=== PATIENT | female | born 1965 | race Hispanic/Latino ===

== ENCOUNTER 2016-09-16 08:02 | Day surgery (SDC) | payer OTHER ==
[2016-09-16] VITALS (9 sets, daily range): BP systolic 141–157; BP diastolic 84–96; PULSE 77–91; RESP 10–20; O2SAT 93–100
[~2016-09-16] VITALS: Ht 149.9 cm; Wt 86.6 kg
--- NOTE | 2016-09-16 07:39 | PCM.HPANE ---
Patient Data Surgeon Admitting Provider: Attending Provider:Doe Rivera MD Primary Care Physician:Elkin Fink MD Other Provider: Reason for Visit Right Knee Complex Lateral Meniscus Tear Ht/WT & BMI Height (Feet): 4 Height (Inches): 11 Weight (Kilograms): 85.73 Body Mass Index 38.00 Allergies Coded Allergies: No Known Allergies (Verified , 09/16/16) Past Anesthesia History Anesthesia History: Denies:: Abnormal Airway, Anesthesia Reactions, Difficult Intubation, Fam Anesthesia Reaction, Malignant Hyperthermia Diabetes History Hx Diabetes?: No MRSA MRSA: No Medications Hypertension Medication: Yes Home Meds Incl Beta Rosanna: No Reported Medications Lisinopril 10 Mg Tablet5 Mg PO DAILY 30 Days Ref 0 09/11/16 Gabapentin 100 Mg [id number] Mg PO DAILY 30 Days Ref 0 09/11/16 Discontinued Reported Medications oxyCODONE-Acetaminophen 5-325 mg 1 Each Tablet1 Tab PO Q6H PRN For Pain Ref 0 01/08/16 Lisinopril 5 Mg Tablet5 Mg PO DAILY #30 TABLET Ref 0 01/08/16 History History of ENT Problems?: No HEENT History: Denies:: Abnormal Airway Cataracts Difficult Intubation Dysphagia Glaucoma Hearing Problem Sinus Problem TMJ Hx of Heart Problems?: Yes Cardiovascular History: Positive for:: Hypertension Denies:: AICD Abdominal Aortic Aneurism Atrial Fibrillation Cardiac Surgery Edema Heart Murmur Irregular Heartbeat Pacemaker Peripheral Vascular Rheumatic Fever Hx of Respiratory Problem?: No Respiratory History: Denies:: Asthma COPD Emphysema Oxygen Administration Pneumonia Tuberculosis Use of C-PAP Machine Use of Inhalers / NEBS Hx Neurologic Problems?: No Neurological History: Denies:: CVA Dizziness Headaches Multiple Sclerosis Parkinson's Disease Seizures Hx of GI Problems?: Yes Gastrointestinal History: Positive for:: Gall Bladder Disease (removed) Denies:: Cirrhosis Gastroesphageal Reflux Gastrointestinal Bleeding Heartburn Hepatitis Liver Disease Hx of Problems?: No Genitourinary History: Denies:: Kidney Stones Urinary Tract Infection Female Hx: Denies:: Currently (tubal ligation) Problems with Breasts? Skin History: Denies:: History Skin Disorders? Pressure Ulcers Hx Musculoskeletal Problems?: Yes Musculoskeletal History: Positive for:: Musculoskeletal Trauma (right knee current admission problem) Denies:: Back Injury Degenerative Joint Fibromyalgia Joint Replacement Osteoarthritis Rheumatoid Arthritis Hx of Psycho/Social Problems?: No Psycho Social History: Denies:: Anxiety Hx Depression Hx Surgeries?: Yes (C/S X3,ADRIAN, left foot surgery, tubal ) Hx Any Other Health Problems?: Yes Other History: Denies:: Cancer Endocrine Disease Hospitalization Thyroid Disease History Blood Transfusions: Positive for:: Accept Blood Products? Denies:: Blood Transfusions Hx Diabetes: No Hx Alcohol Use: NoHx Substance Use: No Smoking Status: Never Smoker Have You Smoked inLast 12 mo: No Stop/Bang S-Snoring: Do You Snore Loudly: No T-Tired: feel tired, fatigued: No O-Obsered: Observed not breath: No P-Blood Pressure: treated: Yes B- Body Mass Index > 35 kg/m2: Yes A- Age over 50: Yes N- Neck Large Circumference: No G- Gender Male: No JOSE CRUZ Total Score: 3 Risk Assessment Category Category 1A: Patient has history of documented sleep apnea, and HAS NOT received any narcotic, sedative or anesthesia administration during this stay. Category 1B: Patient has history of documented sleep apnea, and HAS received any narcotic , sedative or anesthesia administration during this stay Category 2: Patient has SUSPECTED Obstructive Sleep Apnea, and HAS received any narcotic , sedative or anesthesia administration during this stay. Category 3: Patient has SUSPECTED Obstructive Sleep Apnea and HAS NOT received narcotic, sedative or anesthesia administration during this stay. Category 4: Outpatient in Procedural Areas with known sleep apnea or who screen positive for High Risk via the STOP/BANG questionnaire. Exam Exam General Appearance: Alert, Oriented X3, Cooperative HEENT/AIRWAY: MP 2, Neck Movement (THICK, FROM), Mouth Opening (WNL) Lungs: Clear to Auscultation Heart: Exam Unremarkable Plan Impression Patient chart reviewed, patient interviewed and anesthestic plan with risks, benefits, and alternatives discussed, and informed consent obtained. NPO Status: 01/08 at 2130 ASA Physical Status: ASA2 Mod Systemic Disease Anesthetic Plan: GA Bene/Risks/Altern/Consents: Yes HP Complete Prior to Induction: Yes Antelmo Molina MD Sep 16, 2016 07:39
[~2016-09-16 08:02] MED LIST: Acetaminophen IV 1,000 MG in IV Premix 1 EACH IV ONE; CeFAZolin Inj 2 GM in IV Premix 1 EACH IV ONE; GABA-500 PO; LISI10TA PO
[2016-09-16] MEDS ORDERED: fentaNYL-PF 50 mCg/mL 2 mL Inj ONE (08:03)
[2016-09-16] MEDS: Lactated Ringer's 1,000 ML IV SCH ×2 (08:13→09:57)
[2016-09-16] MEDS ORDERED: Lactated Ringer's 1,000 ML IV SCH (09:52)
[2016-09-16] MEDS ORDERED: Lactated Ringer's 500 ML IV PRN (09:52)
[2016-09-16] MEDS ORDERED: EPHEDrine Sulfate 50 mg/mL Inj IM PRN (09:55)
[2016-09-16] MEDS ORDERED: Ondansetron 2 mg/mL 2 mL Inj IVPUSH PRN (09:55)
[2016-09-16] MEDS ORDERED: Dexamethasone 4 mg/mL Inj IVPUSH PRN (09:55)
[2016-09-16] MEDS ORDERED: Phenylephrine 10,000 mCg/mL Inj IVPUSH PRN (09:55)
[2016-09-16] MEDS ORDERED: hydrALAZINE 20 mg/mL Inj IVPUSH PRN (09:55)
[2016-09-16] MEDS ORDERED: hydrOXYzine Inj 25 MG/1 mL SDV IM PRN (09:55)
[2016-09-16] MEDS ORDERED: Atropine 0.4 mg/mL Inj IVPUSH PRN (09:55)
[2016-09-16] MEDS ORDERED: HYDROmorphone 1 mg/mL Inj IVPUSH PRN (09:55)
[2016-09-16] MEDS ORDERED: Labetalol 5 mg/mL 4 mL Inj IV PRN (09:55)
[2016-09-16] MEDS ORDERED: EPHEDrine Sulfate 50 mg/mL Inj IVPUSH PRN (09:55)
[2016-09-16] MEDS ORDERED: Lidocaine 2%-Epi 1:100,000 20 mL Inj INFILTRATE ONE (10:26)
[2016-09-16] MEDS ORDERED: MethylprednisoLONE Depot 40 mg/mL Inj ARTICULAR ONE (10:26)
[2016-09-16] MEDS ORDERED: HYDROcodone-APAP 5-325 mg Tablet PO PRN (11:10)
[2016-09-16] MEDS: fentaNYL-PF 50 mCg/mL 2 mL Inj IVPUSH PRN ×2 (11:13→11:23)
--- NOTE | 2016-09-16 11:14 | PCM.ORTHOB ---
Immediate Operative Note Date of Service: Sep 16, 2016 Pre Operative Diagnosis Right knee lateral meniscal tear Post Operative Diagnosis Same Procedure Right knee arthroscopic partial lateral meniscectomy Surgeon Surgeon: Doe Rivera MD Assistants: None Findings Right knee lateral compartment complex tear of the body of the lateral meniscus extending into the anterior horn. Early degenerative changes on both sides of the joint with grade 1-2 chondromalacia in the weightbearing portion of lateral femoral condyle and tibial articular surface. The anterior cruciate ligament appeared partially and chronically torn affecting the anterior fibers. A significant amount of posterior fibers were still intact and attached to the femoral condylar origin. The medial compartment was better preserved. The medial meniscus appeared intact and was stable to probing. Minimal and diffuse grade 1 chondromalacia on both sides of the joint. No loose bodies were noted in the medial or lateral gutters. Diffuse grade 1 chondromalacia and small areas of grade 2 chondromalacia affecting the majority of the undersurface of the patella. Grafts, Implants: None Complications There were no periprocedural complications identified. Condition Stable Anesthetic Administered: GA Drains: None Catheters: None Output, Estimated Blood Loss: 1 Blood Admin during surgery: No Surgical Cast or Splint: None Additional Information Tourniquet time 30 minutes Surgical Specimen Removed: No Surgical Specimen sent to Path: No Post Operative Plan The patient will be discharged from daycare surgery when protocol is met. The patient will be allowed to weight-bear as tolerated through her right lower extremity beginning postop day #1. Patient should resume her preoperative knee strengthening exercises as soon as possible. The patient will be seen for routine wound check on her after postop day #5. The patient will have skin sutures removed on or after postoperative day #12. The patient should be able to resume light activities of daily living by that point. Doe Rivera MD Sep 16, 2016 11:14
--- NOTE | 2016-09-16 11:20 | PCM.ORTHOP ---
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 She reports the onset of right knee pain beginning approximately 4 months ago after initiating a vigorous, self-directed exercise program. Patient has been bothered by catching in the anterolateral aspect of her right knee with loaded squatting, lunging, turning and twisting activities. Preoperative exam reveals the right knee to have full and stable range of motion with tenderness along the lateral joint line and a positive Juan sign. Preoperative MRI of the patient's right knee confirms a complex tear of the body and anterior horn of the lateral meniscus. The patient's right knee symptoms have not responded to activity modification, an attempt at strengthening the knee and the use of anti- inflammatory agents. The patient presents for right knee arthroscopic partial lateral meniscectomy. Findings Right knee lateral compartment complex tear of the body of the lateral meniscus extending into the anterior horn. Early degenerative changes on both sides of the joint with grade 1-2 chondromalacia in the weightbearing portion of lateral femoral condyle and tibial articular surface. The anterior cruciate ligament appeared partially and chronically torn affecting the anterior fibers. A significant amount of posterior fibers were still intact and attached to the femoral condylar origin. The medial compartment was better preserved. The medial meniscus appeared intact and was stable to probing. Minimal and diffuse grade 1 chondromalacia on both sides of the joint. No loose bodies were noted in the medial or lateral gutters. Diffuse grade 1 chondromalacia and small areas of grade 2 chondromalacia affecting the majority of the undersurface of the patella. Details of Procedure Patient was brought to the OR and given a general anesthetic. The patient was placed in supine position and we placed a tourniquet high about the right thigh. Right lower extremity was prepped in usual sterile fashion and the tourniquet was inflated to 275 mmHg. We placed 2 infrapatellar arthroscopic portals, one medial and one lateral for the scope and instruments. We instilled lactated Ringer's with epinephrine and went directly into the lateral compartment. We confirmed the presence of a complex tear of the lateral meniscus extending from the body into the anterior horn. There were also early degenerative changes on both sides of the joint. We used arthroscopic basket biting instruments and an arthroscopic shaver to debride the meniscal tear back to a stable base. We explored the rest of the knee. We found the anterior cruciate ligament to be partially torn with the posterior fibers still intact and stable. The tear had a chronic appearance. The medial compartment was better preserved with minimal early degenerative changes. The medial meniscus was intact and stable to probing. The medial and lateral gutters were examined and found to be free of loose bodies. Patellofemoral compartment was reviewed and found to have mild early degenerative changes affecting the patellar undersurface. We thoroughly irrigated the knee and removed the scope and instruments. We instilled 30 mL of 2% lidocaine with epinephrine 1 mg of Depo- Medrol. The arthroscopic portals were closed with interrupted 4-0 nylon sutures. Wounds dressed with Xeroform and dry gauze dressings. Tourniquet was deflated and the patient was taken back to PACU in stable and satisfactory condition. There were no complications. Patient tolerated procedure well. Grafts, Implants: None Complications There were no periprocedural complications identified. Condition Stable Anesthetic Administered: GA Drains: None Catheters: None Output, Estimated Blood Loss: 1 Blood Admin during surgery: No Surgical Cast or Splint: None Addtional Information Tourniquet time 30 minutes Surgical Specimen Removed: No Specimen sent to Pathology: No Post Operative Plan The patient will be discharged from daycare surgery when protocol is met. The patient will be allowed to weight-bear as tolerated through her right lower extremity beginning postop day #1. Patient should resume her preoperative knee strengthening exercises as soon as possible. The patient will be seen for routine wound check on her after postop day #5. The patient will have skin sutures removed on or after postoperative day #12. The patient should be able to resume light activities of daily living by that point. copies to: Doe Rivera MD; Vickey Fink MD, Michael G.E MD Sep 16, 2016 11:20
--- NOTE | 2016-09-16 11:21 | PCM.ANEP1 ---
Post Anesthesia Phase 1 PACU Phase 1 Assessment Date of Service: Sep 16, 2016 Vital Signs Vital Signs Date Time Temp Pulse Resp B/P Pulse Ox O2 Delivery O2 Flow Rate FiO2 09/16/16 11:10 87 12 146/96 96 Room Air 09/16/16 11:05 89 11 141/93 99 Room Air 09/16/16 11:03 36.6 87 10 147/84 98 Room Air 09/16/16 08:20 36.6 78 16 144/93 96 Room Air Anesthetic Administered: GA Level of Alertness: Awake, talking VALENCIA's with Equal Strength: Yes Pain: Yes Pain Scale Score: 10 Nausea or Vomiting: No Oxygen Delivery: Room Air Lungs: Normal Air Movement Antelmo Molina MD Sep 16, 2016 11:21
--- NOTE | 2016-09-16 12:17 | PCM.ANEP2 ---
Post Anesthesia Evaluation ASA/CMS Post Anesthesia VS in Patient's Normal Range?: Yes Resp Stable; Airway Patent?: Yes CV Function & Hydration Stable: Yes Mental Status Recovered?: Yes Pain control Satisfactory?: Yes N/V Control Satisfactory?: Yes Antelmo Molina MD Sep 16, 2016 12:17
== END 2016-09-16 23:59 | disposition home or self-care (01) ==
LOC: SAS 08:02
PROVIDERS: ATTEND Orthopaedic Surgery
DX: M23.361 Other meniscus derangements, other lateral meniscus, right knee (principal); M94.261 Chondromalacia, right knee
CPT/HCPCS: 29881; J0131; J0690; J1030; J2250; J3010; J7120

== ENCOUNTER 2017-04-23 09:27 | Emergency (ER) | payer OTHER ==
[~2017-04-23] VITALS: Ht 149.9 cm; Wt 84.1 kg
[~2017-04-23 09:27] MED LIST changes: -Acetaminophen IV 1,000 MG in IV Premix 1 EACH IV ONE; -CeFAZolin Inj 2 GM in IV Premix 1 EACH IV ONE
[2017-04-23 09:33] VITALS: BP 145/94; PULSE 95; RESP 20; O2SAT 97
--- NOTE | 2017-04-23 10:28 | ED.REPORT ---
HPI-General Illness Date of Service Apr 23, 2017 ED Provider: Enrique Robles MD History of Present Illness: CC: HTN Pt is a 52 year old female with a history of hypertension who presents to the ED complaining of headache onset 0300. She describes her headache as diffuse and as "if her head is going to explode". Pt reports she took her blood pressure , and it was 160/110. She has lisinopril medication for her blood pressure, and has stopped taking it regularly, although she states she took one at 0430 today. She rates her pain now at 8/10, and was 10/10 at its worst. Additional symptoms include general weakness, nausea, chronic low back pain, and dry mouth. She denies fever, chest pain, vomiting, numbness/tingling, or any recent infection. She has had similar symptoms in the past once or twice. Nursing Notes Stated Complaint: HIGH BLOOD PRESSURE Chief Complaint: General Complaint Nursing Notes Reviewed: Yes (Oja.la, Mobile Card not reconciled) Allergies: Coded Allergies: No Known Allergies (Verified , 04/23/17) Scheduled Lisinopril (Lisinopril) 10 Mg Tablet 5 MG PO DAILY Scheduled PRN Cyclobenzaprine (Cyclobenzaprine) 10 Mg Tablet 10 MG PO TID PRN PRN Spasm In Mongolian please General Time Seen by MD: 10:03 Chief Complaint Headache Hx Obtained From: Patient, [employer] Visual Designer Arrived By: Walk-in Sudden in Onset?: Yes Onset Occurred: 1 - 4 hours ago Symptom Duration: Constant Quality: Painful Severity: Current: Pain level 8 out of 10 Severity: Maximum: Pain level 10 out of 10 Recent Healthcare: Recent doctor visit Similar Sx Previous: No Past Medical History Past Medical History Hypertension Past Surgical History Cholecystectomy Right knee 3 Tubal ligation left foot surgery Smoking History Never Smoker Social History Drug Use: Denies drug use Other Social History: Good social support Ambulatory Status Independent Review of Systems Hypertension Dry mouth Full Review of Systems Constitutional: Reports: Weakness - generalized, Denies: Fever Cardiovascular: Denies: Chest pain GI: Reports: Nausea, Denies: Vomiting Musculoskeletal: Reports: Back pain (chronic low back) Neurologic: Reports: Headache, Denies: Numbness Complete sys rev & neg: except as marked. Physical Exam Vital Signs Vital Signs Date Time Temp Pulse Resp B/P Pulse Ox O2 Delivery O2 Flow Rate FiO2 04/23/17 14:52 86 20 114/69 97 Room Air 04/23/17 14:19 84 23 121/81 95 Room Air 04/23/17 12:55 89 21 122/77 95 Room Air 04/23/17 11:15 91 20 144/95 98 Room Air 04/23/17 09:33 37.1 95 20 145/94 97 Room Air Initial VS: Reviewed, Vital signs normal (mild HTN) Head / Eyes: Atraumatic, Normocephalic Neck: Supple, Full range of motion Extremities: Vascular intact, Neuro intact, No swelling, No tenderness Skin: Warm, Dry, No cyanosis Neurologic: Alert, Oriented, Nonfocal Psychiatric: Mood/affect normal, Behavior normal, Normal thought content General/Constitutional: Awake, Alert Respiratory / Chest: Atraumatic, Breath sounds NL, Breath sounds = bilat, No respiratory distress Cardiovascular: Heart rate NL, Regular rhythm, Heart sounds NL Interpretation & Diagnostics Lab Results Interpretation Result Diagram: 04/23/17 1056 04/23/17 1056 Test 04/23/17 10:56 White Blood Count 9.1th/mm3 (3.8-10.1) Red Blood Count 4.82mil/mm3 (3.90-5.20) Hemoglobin 15.0g/dL (12.0-15.6) Hematocrit 43.6% (35.0-46.0) Mean Corpuscular Volume 90.5fL (81-100) Mean Corpuscular Hemoglobin 31.1pg (27.0-35.0) Mean Corpuscular Hemoglobin Concent 34.4% (32.0-37.0) Red Cell Distribution Width 12.7% (12.3-15.4) Platelet Count 164bil/L (150-400) Neutrophils (%) (Auto) 87.3% (40-74) Lymphocytes (%) (Auto) 8.0% (14-46) Monocytes (%) (Auto) 3.6% (4-12) Eosinophils (%) (Auto) 0.8% (0-5) Basophils (%) (Auto) 0.1% (0-3) Sodium Level 140mEq/L (134-144) Potassium Level 4.3mEq/L (3.5-5.2) Chloride Level 102mEq/L (97-108) Carbon Dioxide Level 22mmol/L (18-29) Blood Urea Nitrogen 12mg/dL (6-24) Creatinine 0.44mg/dL (0.57-1.00) Estimat Glomerular Filtration Rate 215mL/min (>59) Glucose Level 127mg/dL (60-99) Calcium Level 9.1mg/dL (8.5-10.1) Total Bilirubin 0.8mg/dL (0.0-1.2) Aspartate Amino Transf (AST/SGOT) 190U/L (0-50) Alanine Aminotransferase (ALT/SGPT) 135U/L (0-32) Alkaline Phosphatase 119U/L (25-150) Total Protein 7.4g/dL (6.4-8.4) Albumin 4.1g/dL (3.4-5.0) ECG Interpretation ECG Interpretation: Sinus rhythm, rate 95 Time: 10:01 Interpreted by: ED physician CT Head Interpretation IMPRESSION: No CT evidence of acute intracranial pathology. Dictated by: Param Rangel M.D. on 04/23/2017 at 13:34 Approved by: Param Rangel M.D. on 04/23/2017 at 13:36 Study: Head CT no contrast Interpretation / Wet Read by: Interpret - Radiologist Re-Eval/Medical Decision Med Decision/Clinical Course This is a pleasant 52-year-old female woke with a headache today. She describes as a pressure discomfort, she took her blood pressure at home and was in the 160s. She notes that she is postmenopausal and go but has not been taking this routinely. She has no focal deficits, no history of trauma, no meningismus, no rash or exanthem. Exam she's anxious. She has trace nausea no vomiting. She has a normal neurologic exam. She has no red flags to indicate subarachnoid, meningitis or need for LP. She received Phenergan, and symptoms markedly improved. She several rounds medicines, but after multiple doses of medicines she is still concerned that she still had some residual headache. Given the persistence, she ultimately underwent CT imaging and had labs which were normal except for trace liver function test abnormalities nonspecific and unlikely be causative. She did receive a dose of her lisinopril here. Again I'm not finding indication for LP. Even her refractory symptoms to multiple non-narcotics, she C.25 milligrams carotid area with resolution. She is being discharged in good condition. She likes the medicine for her chronic back discomfort and review options have gone ahead and written prescription for cyclobenzaprine. Patient's much improved, blood pressures normalized to a systolic of 112. Although she has hypertensive, her hypertension is not particular severe, and it is not clear that is truly causing her headaches. She does not meet threshold to suspect hypertensive urgency/emergency. Source of Hx: Old records Time of Eval: 14:00 Re-Evaluation/Progress Note: Lab analyzer down, labs are running slow Time of Eval: 14:46 Patient Status: Condition improved Re-Evaluation/Progress Note: Patient rechecked. She reports feeling much better. Her blood pressure has returned to normal. Discussed plan for discharge. Patient understands and agrees with plan. F/U instructions and RTER warnings given. All questions addressed at this time. Differential Diagnosis: Negative: Abdominal pain, Acute coronary syndrome, Allergies, Drug dependence, Neutropenia, Pneumonia Counseled Regarding: Diagnosis, Lab results, Need for follow-up, When/why to return to ED Discharge & Departure Primary Impression: Headache Headache type: unspecified Headache chronicity pattern: acute headache Intractability: not intractable Qualified Code: R51 - Headache Additional Impression: High blood pressure Hypertension type: unspecified secondary hypertension Qualified Code: I15.9 - Secondary hypertension, unspecified Disposition: Home Discharge Condition All VS Reviewed: Yes Condition: Stable Additional Instructions: 1. Your CT scan and blood tests did not reveal a dangerous cause of the headache 2. Your blood pressure has improved. 3. Make sure you take your lisinopril daily 4. Follow-up with Dr. Fink. 5. You can take a muscle relaxant cyclobenzaprine 10 mg up to 3 times a day for your chronic back soreness. Please note it causes drowsiness, no driving for at least 4 hours after taking. It is safe to combine with Tylenol to 1000 mg 3 times a day as well. 1. Taveras tomografia y resultados del analisis de suzanne no muestran tracy causa peligrosa de taveras dolor de ana. 2. Taveras presion sanguinea se knapp nikita. 3. Asegurese samantha taveras lisinopril diario. 4. Seguimiento con el Dr. Fink. 5. Ud puede samantha un relajante de musculo cyclobenzabrine 10 mg hasta 3 veces al benson por taveras dolencia de espalda cronica. Por favor tenga en cuenta que causa adormecimiento, no maneje por lo menos 4 horas despues de tomarlo. Esta seguro tomarlo con tylenol 1000 mg 3 veces al benson tambien. Referrals: Vickey Fink MD (PCP) Scribe Attestation Portions of this note were transcribed by Karen Guillaume. I, Dr. Robles, personally performed the history, physical exam and medical decision-making; I reviewed and confirmed the accuracy of the information in the transcribed note. Signed by: Ac Hernandez, 04/23/17. copies to: Vickey Fink MD, Matthew F MD Apr 23, 2017 10:28 Karen Guillaume Apr 23, 2017 10:37
[2017-04-23] MEDS ORDERED: Promethazine Inj 25 MG in Dextrose 5%-Pha MIX 50 ML IV ONE (10:30)
[2017-04-23 11:15] VITALS: BP_SYST 144; BP_DIAS 195; BP_DIAS 95; PULSE 91; RESP 20; O2SAT 98
[2017-04-23 11:19] LABS: BASOPHILS % (AUTO) 0.1 % (0-3); EOSINOPHILS % (AUTO) 0.8 % (0-5); MONOCYTES % (AUTO) 3.6 % (4-12); Mean Corpuscular Hemoglobin 31.1 pg (27.0-35.0); Mean Corpuscular Volume 90.5 fL (81-100); NEUTROPHILS % (AUTO) 87.3 % (40-74); Platelet Count 164 bil/L (150-400)
[2017-04-23] MEDS ORDERED: Ketorolac 15 mg/mL Inj IVPUSH ONE (12:05)
[2017-04-23] MEDS ORDERED: HYDROmorphone 0.5 mg/0.5 mL iSecure Syringe IVPUSH ONE (12:35)
[2017-04-23 12:55] VITALS: BP 122/77; PULSE 89; RESP 21; O2SAT 95
--- NOTE | 2017-04-23 13:38 | DRSVH ---
PROCEDURE: CT BRAIN WITHOUT CONTRAST ([id number]) INDICATIONS: HERNÁNDEZ TECHNIQUE: Noncontrast 4.5 mm thick angled axial sections acquired from the foramen magnum to the vertex, with c oronal reformats. COMPARISON: None. FINDINGS: Image quality: Excellent. CSF spaces: Basal cisterns are patent. No extra-axial fluid collections. Ventricles are normal in size and shape. Brain: No midline shift. No intracranial masses or hemorrhage. Win-white matter interface is norm al. Ectatic basilar artery. Skull and face: Calvarium and visualized facial bones are intact, without suspicious lesions. Sinuses: Visualized sinuses and mastoids are clear. IMPRESSION: No CT evidence of acute intracranial pathology. Dictated by: Param Rangel M.D. on 04/23/2017 at 13:34 Approved by: Param Rangel M.D. on 04/23/2017 at 13:36
[2017-04-23 14:19] VITALS: BP 121/81; PULSE 84; RESP 23; O2SAT 95
[2017-04-23] MEDS ORDERED: CYCL10TA9 PO (14:51)
[2017-04-23 14:52] VITALS: BP 114/69; PULSE 86; RESP 20; O2SAT 97
== END 2017-04-23 15:04 | disposition home or self-care (01) ==
LOC: SED 09:27
DX: R51 Headache (principal); I15.9 Secondary hypertension, unspecified
CPT/HCPCS: 36415; 70450; 80053; 85025; 93005; 96374; 96375; 99285; J1170; J1200; J1885; J2550